=== PATIENT | male | born 1975 | race Caucasian/White ===

== ENCOUNTER 2018-11-08 10:13 | Emergency (ER) | payer OTHER, MEDICAID ==
[~2018-11-08] VITALS: Ht 177.8 cm; Wt 79.8 kg
[2018-11-08 10:18] VITALS: Ht 177.8 cm; Wt 79.8 kg
[2018-11-08 13:08] VITALS: BP 116/73
== END 2018-11-08 13:08 | disposition home or self-care (01) ==
LOC: ED 10:13
DX: N41.0 Acute prostatitis (principal)
CPT/HCPCS: 87491; 87591; Q0092

== ENCOUNTER 2019-10-11 11:03 | Emergency (ER) | payer OTHER ==
[~2019-10-11] VITALS: Ht 165.1 cm; Wt 79.8 kg
[2019-10-11 11:14] VITALS: BP 152/83; Ht 165.1 cm; Wt 79.8 kg
== END 2019-10-11 11:36 | disposition home or self-care (01) ==
LOC: ED 11:03
DX: F41.9 Anxiety disorder, unspecified (principal)